=== PATIENT | female | born 1990 | race Caucasian/White ===

== ENCOUNTER 2019-10-18 08:25 | Inpatient (IN) | payer OTHER ==
[2019-10-18] MEDS ORDERED: Promethazine HCl 25 MG/ML VIAL IM PRN (08:54)
[2019-10-18] MEDS ORDERED: Ondansetron PF 4 MG/2 ML Vial IVP PRN ×2 (08:54→21:24)
[2019-10-18] MEDS ORDERED: Butorphanol Tartrate 1 MG/ML VIAL SLOW IVP PRN (08:54)
[2019-10-18] MEDS ORDERED: Methylergonovine 0.2 MG/ML VIAL IM PRN ×2 (08:54→21:24)
[2019-10-18] MEDS ORDERED: Acetaminophen 500 MG TAB PO PRN (08:54)
[2019-10-18] MEDS ORDERED: NS w/ Oxytocin 10 units 500 ML IV SCH (08:54)
[2019-10-18] MEDS ORDERED: NS / Oxytocin 40 units/1000ml 1,000 ML IV PRN (08:54)
[2019-10-18] MEDS ORDERED: Penicillin G Potassium 5 MILL.UNITS in Sodium Chloride 0.9% 100 ML IVPB SCH (08:54)
[2019-10-18] MEDS ORDERED: Carboprost 250 MCG/ML AMP IM PRN (08:54)
[2019-10-18] MEDS ORDERED: Misoprostol 200 MCG TAB PR PRN (08:54)
[2019-10-18] MEDS ORDERED: Lidocaine 1% (PF) 30 ML VIAL SC PRN (08:54)
[2019-10-18] MEDS ORDERED: hydrALAZINE 20 MG/ML VIAL SLOW IVP PRN ×2 (08:54→21:24)
[2019-10-18] MEDS ORDERED: Ibuprofen 800 MG TAB PO PRN (08:54)
[2019-10-18] MEDS ORDERED: HYDROcodone/Acetaminophen 5/325 mg Tablet PO PRN ×3 (08:54→21:24)
[2019-10-18] MEDS ORDERED: Diphenoxylate HCl/Atropine Tablet PO PRN (08:54)
[2019-10-18] MEDS: Lactated Ringer's 1,000 ML IV SCH ×2 (09:22→16:00)
[2019-10-18 09:35] LABS: Hemoglobin 13.4 g/dL (12.0-16.0); Mean Corpuscular HGB CONC 35.4 g/dL (32.0-36.0); Mean Corpuscular Hemoglobin 34.3 pg (27.0-31.0); Mean Corpuscular Volume 96.9 fL (78.0-98.0); Mean Platelet Volume 7.3 fL (7.4-10.4); Platelet Count 257 thou/uL (130-400); RBC Distribution Width 11.9 % (11.5-14.5); Red Blood Cell (RBC) Count 3.89 mill/uL (4.20-5.40); White Blood Cell (WBC) Count 8.1 thou/uL (4.8-10.8)
[2019-10-18] MEDS ORDERED: Penicillin G Potassium 5 MILL.UNITS VIAL ONE (09:37)
[2019-10-18 10:13] VITALS: BMI 24.3
[2019-10-18 10:14] LABS: HBSAg Index 0.32 S/CO (0-0.99); Hep B Surf Ag Non-Reactive S/CO (NonReactive); Syphilis Antibody Nonreactive (Nonreactive); Syphilis Antibody Index 0.02 S/CO (<1.00 Non-Reactive)
[2019-10-18] MEDS: Penicillin G 2.5 MILL.units 2.5 MILL.UNITS in Premix Bag 1 BAG IVPB SCH (13:33)
--- NOTE | 2019-10-18 13:58 | PDOC.LDPN ---
Labor & Delivery Progress Note - Subjective Subjective: comfortable - Objective General: resting Uterine fundus: non tender Dilation: 2 Effacement: 75% Station: -1 FHT: category [address] contractions every: 3min AROM: clear fluid FSE placed: yes Resuscitative measures: maternal position change Plan: continue plan of care -: Dr. Pepe notified via, text of decel and FSE placement.
--- NOTE | 2019-10-18 17:30 | PDOC.LDHP ---
Labor and Delivery H&P Chief complaint: scheduled induction HPI: 29yo at 39w1d by LMP here for elective IOL due to hx of precipitous labor. Current gestational age (weeks): 39 Due date: 10/24/19 Dating criteria: last menstrual period Grav: 4 Para: 2 Current complications: none Abnormal US findings: No Past Medical History: denies Current medications: pre-yas vitamins Previous surgical history: none Allergies/Adverse Reactions: Allergies Allergy/AdvReac Type Severity Reaction Status Date / Time No Known Allergies Allergy Verified 10/18/19 10:20 Social history: none - Physical Exam Vital signs reviewed and normal: yes General: breathing through contractions Heart: RRR Lungs: CTAB Abdomen: gravid Extremeties: no edema FHT: category 1 [place] contractions every: 3min - Vaginal Exam cm dilated: 10 Effacement: 100% Station: 3+ - OB Labs Blood type: A RH: positive Antibody Screen: negative HIV: negative RPR: negative HEPSAg: negative 1 hour GCT: negative GBS: positive Urine drug screen: negative Rubella: immune - Assessment L&D Assessment: elective induction at term - Plan Plan: admit to L&D, labor augmentation if indicated, GBS antibiotic prophylaxis , informed consent obtained, anesthesia consult for pain management
--- NOTE | 2019-10-18 17:33 | PDOC.OPDEL ---
OB Operative/Delivery Note Delivery Dr/Surgeon: Afshin Assist: n/a Pre-Delivery Diagnosis: elective induction Procedure/Post Delivery Dx: spontaneous vaginal delivery Weeks gestation: 39 Anesthesia: none - Findings A Sex: female - 1 min: 8 - 5 min: 9 - Additional Findings/Plan Placenta delivered: spontaneous Repaired Obstetrical Laceration: none Estimated blood loss: 200 Post delivery plan: routine recovery
[2019-10-18] MEDS ORDERED: NS / Oxytocin 40 units/1000ml 1,000 ML IV SCH (21:24)
[2019-10-18] MEDS ORDERED: Lanolin Ointment 7 GM TUBE TOP PRN (21:24)
[2019-10-18] MEDS ORDERED: Bisacodyl 10 MG SUPP PR PRN (21:24)
[2019-10-18] MEDS ORDERED: Benzocaine-Menthol 82.5 ML CAN TOP PRN (21:24)
[2019-10-18] MEDS ORDERED: Milk Of Magnesia 30 ML UDCUP PO PRN (21:24)
[2019-10-18] MEDS ORDERED: Docusate Calcium (SURFAK) 240 MG CAP PO SCH (21:45)
[2019-10-18] MEDS: Ibuprofen 800 MG TAB PO SCH (23:27)
[2019-10-19] MEDS: Ibuprofen 800 MG TAB PO SCH ×2 (05:11→13:43)
--- NOTE | 2019-10-19 06:15 | PDOC.PP ---
Post Progress Note Post Day #: 1 Subjective: Doing well, desires DC to home tonight if possible PO intake tolerated: yes Flatus: yes Ambulation: yes Vital Signs (12 hours) Temp Pulse Resp BP Pulse Ox 10/19/19 05:10 98.2 F 71 15 112/71 10/18/19 22:50 99.3 F 74 16 109/58 L 10/18/19 21:50 99.1 F 59 L 17 126/58 L 10/18/19 20:30 98.3 F 65 17 124/66 100 Weight Weight 155 lb - Physical Examination General: NAD Abdominal: lochia, no distention, appropriately TTP Extremities: negative homans (B) Skin: no rash Neurological: no gross focal deficits Psychiatric: A&Ox3, normal affect Result Diagrams: 10/18/19 08:46 Additional Labs: Post Labs Blood Type A POSITIVE 10/18/19 10:20 Hep Bs Antigen Non-Reactive S/CO (NonReactive) 10/18/19 08:46 (1) Vaginal delivery Code(s): O80 - ENCOUNTER FOR FULL-TERM UNCOMPLICATED DELIVERY Status: Acute - Assessment/Plan PPD1 this PM...she delivered around 2129. She is desiring DC to home if able at 24 hr priyanka. I have requested therapeutic support staff to please notify pedi of possible DC at 2100. If baby not ready for DC then, will keep until tomorrow.
[2019-10-19] MEDS: Penicillin G 2.5 MILL.units 2.5 MILL.UNITS in Premix Bag 1 BAG IVPB SCH (07:46)
[2019-10-19] MEDS: Ferrous Sulfate 325 MG TAB PO SCH ×2 (08:58→18:25)
[2019-10-19] MEDS ORDERED: Prenatal Vitamin 1 TAB PO SCH (09:00)
[2019-10-19] MEDS ORDERED: Docusate Calcium (SURFAK) 240 MG CAP PO SCH (09:00)
[2019-10-19] MEDS ORDERED: Adacel (T-DAP) 0.5 ML SYRINGE IM ONE (09:00)
[2019-10-19 12:25] VITALS: BP 102/57; TEMP 97
== END 2019-10-19 17:10 | disposition home or self-care (01) | DRG 807 ==
LOC: L&D 08:25 → 3SW 20:57 → EDSTATUS 10-21 08:24
PROVIDERS: ADMIT Student in an Organized Health Care Education/Training Program; ATTEND Student in an Organized Health Care Education/Training Program
PROC: 10E0XZZ Delivery of Products of Conception, External Approach (ICD-10-PCS; principal; 2019-10-18)
PROC: 10907ZC Drainage of Amniotic Fluid, Therapeutic from Products of Conception, Via Natural or Artificial Opening (ICD-10-PCS; 2019-10-18)
PROC: 4A1HXFZ Monitoring of Products of Conception, Cardiac Rhythm, External Approach (ICD-10-PCS; 2019-10-18)
DX: O76 Abnormality in fetal heart rate and rhythm complicating labor and delivery (principal); Z37.0 Single live birth; Z3A.39 39 weeks gestation of pregnancy; O99.824 Streptococcus B carrier state complicating childbirth
CPT/HCPCS: 36415; 85027; 86780; 86850; 86900; 86901; 87340; J2540; J2590; J3490